=== PATIENT | female | born 1975 | race Caucasian/White ===

== ENCOUNTER 2018-11-28 12:33 | Emergency (ER) | payer BC ==
[2018-11-28 13:17] VITALS: BP 145/101
[2018-11-28] MEDS ORDERED: predniSONE TAB* 20 MG PO ONE (13:54)
[2018-11-28] MEDS ORDERED: Albuterol/Ipratropium NEB.SOL* Albuterol 2.5 MG/Ipratropium 0.5 MG 3 ML INH ONE (13:54)
--- NOTE | 2018-11-28 13:55 | UC ---
Respiratory Complaint HPI - HPI Summary HPI Summary: worsening cough chest congestion and wheeze--no known fevers---cannot sleep at night---is a smoker and has similar symptoms - History of Current Complaint Chief Complaint: UCRespiratory Stated Complaint: COUGH Time Seen by Provider: 11/28/18 13:45 Hx Obtained From: Patient ?: No Onset/Duration: Sudden Onset, Lasting Days - 3, Still Present Timing: Constant Severity Initially: Moderate Severity Currently: Moderate Pain Intensity: 5 Pain Scale Used: 0-10 Numeric Character: Cough: Productive Aggravating Factors: Recumbent Position Alleviating Factors: Nothing Associated Signs And Symptoms: Positive: Dyspnea, Pleuritic Chest Pain, Wheezing , URI, Nasal Congestion - Allergies/Home Medications Allergies/Adverse Reactions: Allergies Allergy/AdvReac Type Severity Reaction Status Date / Time Latex, Natural Rubber Allergy Rash Verified 11/28/18 13:17 PMH/Surg Hx/FS Hx/Imm Hx Previously Healthy: Yes - Surgical History Surgical History: Yes Surgery Procedure, Year, and Place: Partial hysterectomy. tubal ligation - Family History Known Family History: Positive: None - Social History Occupation: Employed Full-time Lives: With Family Alcohol Use: None Alcohol Amount: 3 drinks per week Substance Use Type: None Smoking Status (MU): Light Every Day Tobacco Smoker Type: Cigarettes Amount Used/How Often: 5 cig a day Cessation Counseling: Counseled 3+Min - 10 Min Review of Systems All Other Systems Reviewed And Are Negative: Yes Constitutional: Positive: Chills, Fatigue Skin: Positive: Negative Eyes: Positive: Negative ENT: Positive: Negative, Nasal Discharge Respiratory: Positive: Shortness Of Breath, Cough Cardiovascular: Positive: Negative Gastrointestinal: Positive: Negative Genitourinary: Positive: Negative Motor: Positive: Negative Neurovascular: Positive: Negative Musculoskeletal: Positive: Negative Neurological: Positive: Negative Psychological: Positive: Negative Is Patient Immunocompromised?: Yes Physical Exam Triage Information Reviewed: Yes Appearance: No Pain Distress, Ill-Appearing, Thin Vital Signs: Initial Vital Signs Temp 99.6 F 11/28/18 13:14 Pulse 80 11/28/18 13:14 Resp 18 11/28/18 13:14 BP 145/101 11/28/18 13:14 Pulse Ox 98 11/28/18 13:14 Vital Signs Reviewed: Yes Eye Exam: Normal Eyes: Positive: Conjunctiva Clear ENT Exam: Normal ENT: Positive: Normal ENT inspection, Hearing grossly normal, Pharynx normal, TMs normal, Uvula midline. Negative: Nasal congestion, Tonsillar swelling, Tonsillar exudate, Trismus, Muffled voice, Hoarse voice, Dental tenderness, Sinus tenderness Dental Exam: Normal Neck exam: Normal Neck: Positive: Supple, Nontender, No Lymphadenopathy Respiratory Exam: Other Respiratory: Positive: Chest non-tender, Respiratory distress, Decreased breath sounds, Accessory muscle use, Wheezing Cardiovascular Exam: Normal Cardiovascular: Positive: RRR, No Murmur, Pulses Normal, Brisk Capillary Refill Musculoskeletal Exam: Normal Musculoskeletal: Positive: Strength Intact, ROM Intact, No Edema Neurological Exam: Normal Neurological: Positive: Alert, Muscle Tone Normal Psychological Exam: Normal Skin Exam: Normal Re-Evaluation - Re-Evaluation First Eval Change: Improved - slightly increased air movement after first neb Second Eval Change: Improved - significant increased increased air movement and less wheeze- --peask flow 250, 250,2 200=--patient reports feeling much better Respiratory Course/Dx - Course Course Of Treatment: albuterol mdi with aerochamber, zithromax, chantix, prednisone smoking sesasation information provided---follow with pcp for bronchospasm and blood pressure - Differential Dx/Diagnosis Provider Diagnosis: Hypertension, Nicotine dependence with current use, Bronchospasm with bronchitis, acute Discharge - Sign-Out/Discharge Documenting (check all that apply): Patient Departure All imaging exams completed and their final reports reviewed: No Studies - Discharge Plan Condition: Stable Disposition: HOME Prescriptions: Albuterol HFA INHALER* [Ventolin HFA Inhaler*] 2 puff INH Q4H PRN #1 mdi PRN Reason: cough wheeze Azithromycin TAB* [Zithromax TAB (Z-BRYANT) 250 mg #6 tabs] 2 tab PO .TODAY, THEN 1 DAILY #1 bryant Ibuprofen [Ibu] 600 mg PO QID PRN #40 tablet PRN Reason: pain predniSONE [Prednisone 20 MG TAB] 20 mg PO DAILY #10 tablet Varenicline Tartrate [Chantix Starting M... 0.5 mg X 11 & 1 mg X 42] 1 bryant PO SEE INSTRUCTIONS #1 bryant Patient Education Materials: How to Stop Smoking (ED), Acute Bronchitis (ED), Hypertension (ED), Bronchospasm (ED) Forms: *Work Release Referrals: Jalil Vaca MD [Primary Care Provider] - 2 Weeks - Billing Disposition and Condition Condition: STABLE Disposition: Home
[2018-11-28] MEDS ORDERED: Albuterol 2.5 MG/3 ML NEB.SOL* (0.083%) INH ONE (14:41)
== END 2018-11-28 15:43 | disposition home or self-care (01) ==
LOC: UCEAST 12:33
DX: I10 Essential (primary) hypertension (principal); J20.9 Acute bronchitis, unspecified; F17.210 Nicotine dependence, cigarettes, uncomplicated; Z91.040 Latex allergy status
CPT/HCPCS: 99213; A9270-GY; G0463; J7512

== ENCOUNTER 2019-04-21 15:02 | Emergency (ER) | payer BC ==
[2019-04-21 15:15] VITALS: BP 142/90
--- NOTE | 2019-04-21 15:21 | UC ---
Skin Complaint HPI - HPI Summary HPI Summary: 43-year-old female presents for a mass to her left posterior shoulder that she states appeared approximately 3 weeks ago. Presents today for new onset of pain at the site of the mass that extends down her left upper arm and into the left side of her neck that has been going on for the past couple of days.. She is unsure if the mass has changed in size at all. Reports she has been taking ibuprofen 1200 mg 4 times a day with little relief in her pain. Denies fever, chills, erythema, increased warmth, numbness or tingling in the arm. - History of Current Complaint Chief Complaint: UCGeneralIllness Time Seen by Provider: 04/21/19 15:07 Stated Complaint: SOFT TISSUE Hx Obtained From: Patient Pain Intensity: 9 - Allergy/Home Medications Allergies/Adverse Reactions: Allergies Allergy/AdvReac Type Severity Reaction Status Date / Time Latex, Natural Rubber Allergy Rash Verified 04/21/19 15:15 PMH/Surg Hx/FS Hx/Imm Hx Previously Healthy: Yes - Denies significant PMH - Surgical History Surgical History: Yes Surgery Procedure, Year, and Place: Partial hysterectomy. tubal ligation - Family History Known Family History: Positive: Non-Contributory - Social History Occupation: Employed Full-time Lives: With Family Alcohol Use: None Alcohol Amount: 3 drinks per week Substance Use Type: None Smoking Status (MU): Light Every Day Tobacco Smoker Type: Cigarettes Amount Used/How Often: 5 cig a day Review of Systems All Other Systems Reviewed And Are Negative: Yes Constitutional: Negative: Fever, Chills Skin: Positive: Other - See HPI Respiratory: Positive: Negative Cardiovascular: Positive: Negative Gastrointestinal: Positive: Negative Genitourinary: Positive: Negative Motor: Negative: Weakness Neurovascular: Negative: Negative Musculoskeletal: Negative: Arthralgia Neurological: Positive: Negative Is Patient Immunocompromised?: No Physical Exam - Summary Physical Exam Summary: GENERAL APPEARANCE: Well developed, well nourished, alert and cooperative, and appears to be in no acute distress. NECK: Neck supple, non-tender without lymphadenopathy. CARDIAC: Normal S1 and S2. No S3, S4 or murmurs. Rhythm is regular. There is no peripheral edema, cyanosis or pallor. Extremities are warm and well perfused. Capillary refill is less than 2 seconds. Peripheral pulses intact. LUNGS: Clear to auscultation without rales, rhonchi, wheezing or diminished breath sounds. ABDOMEN: Positive bowel sounds. Soft, nondistended, nontender. No guarding or rebound. No masses or hepatosplenomegally. MUSKULOSKELETAL: ROM intact to all extremities. No joint erythema or tenderness. Normal muscular development. Normal gait. SKIN: ~6 cm soft, nontender, well circumscribed circular subdermal mass without erythema or increased warmth to the posterior left shoulder over the mid scapula. Triage Information Reviewed: Yes Vital Signs: Initial Vital Signs Temp 99 F 04/21/19 15:08 Pulse 77 04/21/19 15:08 Resp 12 04/21/19 15:08 BP 142/90 04/21/19 15:08 Pulse Ox 100 04/21/19 15:08 Vital Signs Reviewed: Yes Diagnostics - Radiology No standard instances Radiology Interpretation Completed By: Radiologist Summary of Radiographic Findings: Order Information: US SOFT TISSUE LIMITED EXT- LT. Accession Number: [id number]. CPT: 47205. INDICATION: Left posterior shoulder mass. COMPARISON: There are no relevant prior studies available for comparison. TECHNIQUE: Multiple real-time images of the left shoulder with attention to the patient's palpable abnormality were obtained. FINDINGS: There is an oval-shaped soft tissue echogenicity mass present in the superficial soft tissues along the posterior aspect of the left shoulder, scapular area measuring 5.7 x 1.9 x 5.8 cm. This corresponds with the patient's palpable abnormality. IMPRESSION: THERE IS A SOFT TISSUE ECHOGENICITY MASS PRESENT IN THE SUPERFICIAL SOFT TISSUES ALONG THE POSTERIOR ASPECT OF THE LEFT SHOULDER. THIS CAN BE FURTHER EVALUATED WITH OUTPATIENT MR IMAGING CLINICALLY NEEDED. Course/Dx - Course Course Of Treatment: 43-year-old female presents for a mass to her left posterior shoulder that she states appeared approximately 3 weeks ago. Presents today for new onset of pain at the site of the mass that extends down her left upper arm and into the left side of her neck that has been going on for the past couple of days.. She is unsure if the mass has changed in size at all. Reports she has been taking ibuprofen 1200 mg 4 times a day with little relief in her pain. Denies fever, chills, erythema, increased warmth, numbness or tingling in the arm. Afebrile. Hypertensive otherwise VSS. Patient had an approximately 6 cm soft, nontender, well circumscribed circular subdermal mass without erythema or increased warmth to the posterior left shoulder over the mid scapula. A soft tissue US was obtained and a oval-shaped soft tissue echogenicity mass was seen in the superficial soft tissues along the posterior aspect of the left shoulder, scapular area measuring 5.7 x 1.9 x 5.8 cm. Recommending outpatient MRI for further evaluation. Results were reviewed with the patient. Recommending follow-up with Gen. surgery in 3-5 days for further evaluation and treatment. She is to call first thing in the morning for an appointment. A prescription for ibuprofen 800 mg every 8 hours as needed for pain was sent to the pharmacy and the patient was directed not to exceed the prescribed dose. Anticipatory guidance and warning symptoms were reviewed with the patient. Verbalizes understanding and agrees with plan of care. - Differential Diagnoses - Skin Complaint Differential Diagnoses: Abscess, Other - lipoma - Diagnoses Provider Diagnosis: Mass of skin of left shoulder Discharge - Sign-Out/Discharge Documenting (check all that apply): Patient Departure All imaging exams completed and their final reports reviewed: Yes - Discharge Plan Condition: Stable Disposition: HOME Prescriptions: Ibuprofen TAB* [Motrin TAB* 800 MG] 800 mg PO Q8H #30 tab Referrals: Jalil Vaca MD [Primary Care Provider] - Additional Instructions: The ultrasound performed in the clinic today showed a soft tissue mass of left shoulder but they were not able to definitively determine what is the mass. Follow up with general surgery in 3-5 days for further evaluation and treatment. Call tomorrow morning for an appointment. You may continue to take ibuprofen 800 mg every 8 hours as needed for pain but you should not exceed this dose. You may use acetaminophen (Tylenol) according to the directions to supplement for any additional pain. Follow-up with the general surgeon in 3-5 days for further evaluation and treatment of your shoulder mass. Call tomorrow morning for an appointment. Seek immediate medical attention in the emergency room if you develop fever greater than 100.5 F, you get redness in the shoulder that rapidly spreads, worsening pain despite taking the pain medications as directed, you develop numbness, tingling, or weakness of the arm, or have any worsening of symptoms. - Billing Disposition and Condition Condition: STABLE Disposition: Home - Attestation Statements Provider Attestation: Per institutional requirements, I have reviewed the chart, however, I was not consulted specifically or made aware of this patient by the midlevel provider. I did not personally evaluate, interact with , or disposition this patient.
== END 2019-04-21 16:22 | disposition home or self-care (01) ==
LOC: UCEAST 15:02
DX: R22.32 Localized swelling, mass and lump, left upper limb (principal); F17.210 Nicotine dependence, cigarettes, uncomplicated; Z91.040 Latex allergy status
CPT/HCPCS: 99212; G0463

== ENCOUNTER → 2019-05-20 | Day surgery (SDC) | payer BC ==
[~2019-05-20] MED LIST: Buffered Lidocaine 1% SYRIN* 1 ML/SYRINGE INTRADERM ONE; Bupivacaine 0.5% W/EPI SDV* 10 ML VIAL INJ ONE; Dexamethasone IV* 4 MG/ML 1 ML (4 MG) IV SLOW PU ONE; Dexamethasone IV* 4 MG/ML 1 ML (4 MG) ONE; Famotidine IV* 10 MG/ML 2 ML (20 mg) IV ONE; Famotidine IV* 10 MG/ML 2 ML (20 mg) ONE; Ketorolac INJ* 30 MG/ML 1 ML VIAL ONE; Lactated Ringers 1000 ML Bag* 1,000 ML IV SCH; Lidocaine 1% INJ* 10 MG/ML 30 ML SDV ONE; Midazolam* 1 MG/ML 5 ML VIAL (5 MG) ONE; Naloxone* 0.4 MG/ML 1 ML VIAL IV PRN; Ondansetron INJ* 2 MG/ML VIAL ONE; Propofol* 10 MG/ML 20 ML BTL ONE; ceFAZolin 2 GM in NS PREMIX(*) 2 GM/100 ML BAG IVPB ONE; fentaNYL* 50 MCG/ML 2 ML VIAL (100 MCG VIAL) ONE
--- NOTE | 2019-05-20 11:47 | BRIEFOPN ---
Brief Operative/Procedure Note - Operation Details Pre-Op Diagnosis: left back mass Post-Op Diagnosis: left back mass Procedures: excision of left back mass Surgeon(s)/Proceduralists: Felicity Castillo Anesthesia: local Estimated Blood Loss: minimal, less than 10 cc Findings: Large lipoma Specimen(s)/Culture(s) Description: Left back mass Complications: None
[2019-05-20 12:05] VITALS: BP 133/85
--- NOTE | 2019-05-20 12:54 | OP ---
CC: Megan Lewis NP OPERATIVE REPORT: DATE OF OPERATION: 05/20/19 DATE OF : 73 SERVICE: General Surgery. SURGEON: Felicity Castillo MD GASKET MAKER: None. ANESTHESIOLOGIST: Dr. Lamine Hodge. ANESTHESIA: Local/MAC. PRE-OP DIAGNOSIS: Left back mass. POST-OP DIAGNOSIS: Left back mass. OPERATIVE PROCEDURE: Excision of left back mass. ESTIMATED BLOOD LOSS: Minimal, less than 10 cc. SPECIMEN: Left back mass. INDICATIONS FOR SURGERY: Ms. Apodaca is a very pleasant 43-year-old female with a history of bothersome left back mass that was likely a lipoma. Given its location and how large it was she wished to have it removed. Therefore, she gave informed consent for excision of this left back mass. She understood that the risks included, but were not limited to bleeding, infection, injury to nearby structures, and the possibility for reexcision as necessary. She understood these things and wished to proceed. DESCRIPTION OF PROCEDURE: The patient was brought back to the operating room and placed on the operating room table in a right lateral decubitus position so that the left back was elevated. She underwent IV sedation and then her left upper back was prepped and draped in normal sterile fashion. Antibiotics were administered. Prior to beginning the procedure, a time-out was performed verifying the patient's name, MR number, and the procedure to be performed. Next, approximately 20 cc of local anesthesia consisting of 0.25% Marcaine and 1 % lidocaine was infiltrated into the left back mass, which was over the scapula and approximately 8 to 10 cm in its longest dimension. It was very soft and was felt like a lipoma. Once local anesthesia was administered, a vertical incision was made over the mass. The skin was divided down to the subcutaneous tissue. The capsule of the lipoma was dissected out in its entirety and once the lipoma itself was dissected out and excised, it was carried off the table as a specimen. Upon examination, it did look a benign lipoma that was very soft and consisted of fat. Next, attention was turned towards the lipoma cavity. Hemostasis was obtained. The cavity was irrigated with normal saline and attention was turned towards closure. The subdermal layer was closed with interrupted 3-0 Vicryl sutures and the skin was closed with a running 4- 0 Monocryl suture. Sterile dressing was then placed. The patient's anesthesia was reversed and she was taken to the PACU in stable condition. At the end of the case, a surgical debriefing was performed and all counts were correct and I was present during the entirety of the case. [id number]/CPS #: [id number] MTDD
== END | disposition home or self-care (01) ==
LOC: OR 08:58
PROVIDERS: ATTEND Surgery
DX: D17.1 Benign lipomatous neoplasm of skin and subcutaneous tissue of trunk (principal); J45.909 Unspecified asthma, uncomplicated; Z72.0 Tobacco use
CPT/HCPCS: 88304; J0690; J1100; J1885; J2250; J2405; J2704; J3010